=== PATIENT | male | born 1960 | race Caucasian/White ===

== ENCOUNTER 2020-10-24 08:02 | Emergency (ER) | payer OTHER ==
[~2020-10-24] VITALS: Ht 177.8 cm; Wt 136.1 kg
[2020-10-24] MEDS ORDERED: ACETAMINOPHEN 650 MG RECT SUPP PR ONE (08:15)
[2020-10-24] MEDS ORDERED: cefTRIAXone 1GM/50ML D5W 50 ML IV ONE (08:30)
[2020-10-24] MEDS ORDERED: AZITHROMYCIN 500MG/ 250ML 250 ML IV ONE (08:30)
[2020-10-24 08:52] LABS: Hematocrit 32.8 % (41.0-53.0); Hemoglobin 11.1 g/dL (13.5-17.5); Mean Corpuscular Hemoglobin 30.6 pg (28.0-32.0); Mean Corpuscular Volume 89.8 fL (80.0-100.0); Platelet Count (auto) 159 10^3/uL (140-450); Red Blood Cells 3.65 10^6/uL (4.5-5.90); Red Cell Distribution Width 17.8 % (11.8-14.3); Urine Bacteria FEW /hpf (None Seen); Urine Blood 2+ /uL (Negative); Urine Hyaline Cast MOD /lpf (0 - 2); Urine Mucus FEW (None Seen); Urine Specific Gravity 1.017 (1.001-1.035); Urine WBC 18 /hpf (0 - 3); White Blood Cell 16.5 10^3/uL (4.4-10.8)
[2020-10-24 09:03] LABS: Basophils % (manual) 0 (0.0-2.0); Blast Cells 0; Eosinophils % (manual) 0 (0-7); Myelocytes % 0; Promyelocytes % 0; Reactive Lymphocytes 0
[2020-10-24 09:10] LABS: Alanine Aminotransferase 30 U/L (16-61); Albumin 1.8 g/dL (3.4-5.0); Anion Gap 7 (5-15); Blood Alcohol < 3.0 mg/dL (0-5); Blood Urea Nitrogen 10 mg/dL (7-18); Calcium 8.2 mg/dL (8.5-10.1); Carbon Dioxide 30 mmol/L (21-32); Chloride 88 mmol/L (98-107); Glucose 144 mg/dL (74-106); Potassium 3.5 mmol/L (3.5-5.1); Sodium 125 mmol/L (136-145)
[2020-10-24 09:12] LABS: Alcohol, Urine < 3.0 mg/dL (0-10); Alkaline Phosphatase 155 U/L (45-117); Amphetamine Screen, Urine NEGATIVE (NEGATIVE); Aspartate Aminotransferase 39 U/L (15-37); BUN/Creatinine Ratio 23.8; Barbiturate Scree,Urine POSITIVE (NEGATIVE); Benzodiazephine Screen, Urine NEGATIVE (NEGATIVE); Bilirubin, Total 0.5 mg/dL (0.2-1.0); Cannabinoid Screen, Urine NEGATIVE (NEGATIVE); Cocaine Screen, Urine NEGATIVE (NEGATIVE); GFR African American 267 mL/min; GFR Non-African American 220 mL/min; Opiate Scree,Urine NEGATIVE (NEGATIVE); Phencyclidine Screen, Urine POSITIVE (NEGATIVE); Total Protein 7.3 g/dL (6.4-8.2)
[2020-10-24 09:30] LABS: Band Neutrophils % (manual) 6; Lymphocytes % (manual) 5 (10.0-50.0); Metamyelocytes % 1; Monocytes % (manual) 3 (0-12)
[2020-10-24] MEDS ORDERED: SODIUM CHLORIDE 0.9% 500 ML IV ONE (09:45)
[2020-10-24 15:44] VITALS: BP 100/69
== END 2020-10-24 17:47 | disposition home or self-care (01) ==
LOC: ER 08:02 → EDBD 08:02 → ER 17:47
DX: J96.00 Acute respiratory failure, unspecified whether with hypoxia or hypercapnia (principal); R07.9 Chest pain, unspecified; G93.41 Metabolic encephalopathy; R41.82 Altered mental status, unspecified; E43 Unspecified severe protein-calorie malnutrition; I10 Essential (primary) hypertension; N39.0 Urinary tract infection, site not specified; Z68.41 Body mass index [BMI] 40.0-44.9, adult; Z20.822 Contact with and (suspected) exposure to COVID-19
CPT/HCPCS: 36415; 70450; 71045; 74176; 80053; 80307; 80320; 81001; 83605; 85007; 85027; 87040; 87077; 87086; 87088; 87186; 87426; 93005; 96365; 96366; 96368; 99291; C9803; J0456; J0696; J7040; U0003